=== PATIENT | female | born 1955 | race Asian ===

== ENCOUNTER 2022-03-07 01:48 | Observation (INO) | payer OTHER ==
[~2022-03-07] VITALS: Ht 152.4 cm; Wt 57.6 kg
[2022-03-07] VITALS (7 sets, daily range): BP systolic 119–167
[~2022-03-07 01:48] MED LIST: ASA81 PO; LIP20 PO; LISI40TA13 PO
--- NOTE | 2022-03-07 02:28 | NUR ---
Patient to ER bed AGUIAR to gon for evaluation. Side rails up. Report given to MYRA ZENG(STEPHANIE).
--- NOTE | 2022-03-07 02:55 | NUR ---
BARB Smith at bedside examining patient.
[2022-03-07] MEDS ORDERED: cloNIDine HCL 0.1 MG TABLET PO ONE (03:15)
[2022-03-07 03:50] LABS: BASOPHILS # (AUTO) 0.1 K/uL (0.0-0.2); BASOPHILS % (AUTO) 1.2 % (0.0-2.0); EOSINOPHILS # (AUTO) 0.1 K/uL (0.0-0.4); HEMATOCRIT 42.3 % (36-48); HEMOGLOBIN 14.2 g/dL (12.0-16.0); LYMPHOCYTES # (AUTO) 1.2 K/uL (1.0-5.5); LYMPHOCYTES % (AUTO) 20.2 % (20.5-51.5); MEAN CORPUSCULAR HEMOGLOBIN 28 pg (27-31); MEAN CORPUSCULAR HGB CONC 34 % (32-36); MEAN CORPUSCULAR VOLUME 82 fL (79.0-98.0); MONOCYTES # (AUTO) 0.2 K/uL (0.0-1.0); MONOCYTES % (AUTO) 3.8 % (1.7-9.3); NEUTROPHILS # (AUTO) 4.2 K/uL (1.8-7.7); NEUTROPHILS % (AUTO) 73.8 % (40.0-70.0); PLATELET COUNT (AUTO) 164 K/uL (130-430); RED BLOOD CELL COUNT(AUTO) 5.14 MIL/uL (4.2-6.2); RED CELL DISTRIBUTION WIDTH 14.2 % (9.0-15.0); WHITE BLOOD COUNT (AUTO) 5.8 K/uL (4.8-10.8)
[2022-03-07 04:06] LABS: ANION GAP 8 (5-15); CALCIUM 8.6 mg/dL (8.4-11.0); CHLORIDE 101 mmol/L (98-107); CREATININE 0.85 mg/dL (0.55-1.30); GLUCOSE 120 mg/dL (70-99); POTASSIUM 3.3 mmol/L (3.5-5.1); SODIUM SERUM 137 mmol/L (136-145); UREA NITROGEN, BLOOD 7 mg/dL (8-21)
[2022-03-07 04:15] LABS: ALANINE AMINOTRANSFERASE 27 U/L (12-78); ALBUMIN 3.4 g/dL (3.4-4.8); ASPARTATE AMINOTRANSFERASE 32 U/L (10-37)
[2022-03-07 04:17] LABS: GFR AFRICAN AMERICAN 86 mL/min (>90)
--- NOTE | 2022-03-07 05:32 | NUR ---
Resting comfortably in bed at this time Able to make needs known VSS NAD at this time Pt placed in ED bed 7 Pending admission order
--- NOTE | 2022-03-07 06:31 | NUR ---
Admit bed requested Patient will be admitted to care of . Admitted to TELE unit. Diagnosis CHEST PAIN Inpatient (Yes or No) NO Observation (Yes or No) YES Orientation concerns or request close to nursing station (Yes or No) NO Covid Status PENDING On vent or bipap NO Isolation requirements NO Needs a sitter NO From Home (Yes or if No enter name of facility) YES Requires Dialysis (Yes or No) NO Med Rec Completed (Yes of No) PENDING
[2022-03-07] MEDS ORDERED: LISI40TA13 PO (06:38)
[2022-03-07] MEDS ORDERED: METO25TA6 PO (06:39)
[2022-03-07] MEDS ORDERED: LIP20 PO (06:40)
--- NOTE | 2022-03-07 07:16 | NUR ---
Gave report to Javier
--- NOTE | 2022-03-07 07:25 | NUR ---
RECEIVED PT IN BED #7, IN NAD, VSS, AAOx3, RESTING COMFORTABLE IN BED. AWAITING FURTHER ASSESSEMENT BY ED MD FOR PLAN OF CARE WITH DISPOSITION. PT ADMITTED, AWAITING TRANSFER TO TELE BED.
--- NOTE | 2022-03-07 08:45 | NUR ---
Patient will be admitted to care of Dr. Johansen. Admitted to Telemetry unit. Will go to room 130B. Belongings list completed. Complete and up to date summary report printed. SBAR report to be given at bedside with opportunity for questions.
--- NOTE | 2022-03-07 08:57 | NUR ---
Admission Note Received patient from ER with diagnosis of chest pain. Initial Plan of Care discussed-patient verbalized understanding. Oriented to room, call light, pain management and safety.
--- NOTE | 2022-03-07 11:25 | NUR ---
MD ROUNDS MD Booth gave new orders to recheck Troponin level, Cardio consult, and continue home medications.
--- NOTE | 2022-03-07 11:46 | NUR ---
CONSULTATION PAGED REASON FOR CONSULTATION:CHEST PAIN WAS CONSULT CALLED?Y -PERSON WHO WAS NOTIFIED:LACEY CONSULTING PHYSICIAN:DYLAN HASSAN INFORMATION TECHNOLOGY ASSOCIATE SPECIALTY:CARDIO INFORMATION TECHNOLOGY ASSOCIATE PHONE NUMBER:[phone] REQUESTING PHYSICIAN:BG FLORENCE
[2022-03-07] MEDS ORDERED: lisinopriL 20 MG TABLET PO ONE (12:00)
--- NOTE | 2022-03-07 12:02 | NUR ---
PATIENT ROUNDS Patient laying in bed resting. No chest pain noted, no shortness of breath, no signs of any discomfort. IV site patent, on saline lock. All needs met at this time. Call light within reach. All safety checks in place. Will continue to monitor
--- NOTE | 2022-03-07 16:00 | NUR ---
PATIENT ROUNDS Patient laying in bed resting. Patient denies chest pain, no shortness of breath, no signs of any discomfort. Orthostatic BP done. IV site patent, on saline lock. All needs met at this time. Call light within reach. All safety checks in place. Will continue to monitor
[2022-03-07] MEDS ORDERED: ATORVASTATIN 20 MG TABLET PO SCH (17:00)
--- NOTE | 2022-03-07 18:28 | NUR ---
CLOSING NOTE Patient resting in bed. Patient is A/0 x4. Patient denies chest pain, has no shortness of breath and no signs of distress noted. Patient IV site to LFA is patent on saline lock. Patient to have Troponin level re-drawn at 10pm will endorse to lieutenant shift supervisor nurse. All needs have been met and safety checks in place. Call light within reach. Will endorse to lieutenant shift supervisor nurse.
[2022-03-07] MEDS ORDERED: METOPROLOL TARTRATE 25 MG TABLET PO SCH (21:00)
--- NOTE | 2022-03-08 00:05 | NUR ---
PAGED PAGED DOCTOR HOFFMAN FOR ORDERS
[2022-03-08 00:20] VITALS: BP_SYST 138
--- NOTE | 2022-03-08 01:43 | NUR ---
CALLED AND NOTIFIED TO DR HOFFMAN ABOUT TROPONIN RESULT 57 AT 12: 15 AM. NO NEW ORDER. NEXT TROPONIN SCHEDULED AT 06 AM.
[2022-03-08 04:09] VITALS: BP_SYST 124
--- NOTE | 2022-03-08 06:46 | NUR ---
CLOSING NOTE- PT AWAKE AND ORIENTED. DENIED ANY DISTRESS. NO DIZZINESS OR CHEST PAIN. PENDING 6 AM TROPONIN RESULT. V/S STABLE AFEBRILE. TELE- SR TO SB DOWNED TO 50'S NONSUSTAINED WHILE SLEEP. BRP.
[2022-03-08 07:08] LABS: CALCIUM 8.2 mg/dL (8.4-11.0); CREATININE 0.8 mg/dL (0.55-1.30); POTASSIUM 3.3 mmol/L (3.5-5.1)
[2022-03-08 08:00] VITALS: BP_SYST 151
--- NOTE | 2022-03-08 08:00 | NUR ---
Morning notes: Pt A/Ox4 resting in bed. NO s/s of respiratory or cardiac distress, denies any chest pain. LFA IV site is clean dry and intact, fall and safety precautions are in place, call light is within reach, will continue to monitor.
[2022-03-08] MEDS ORDERED: lisinopriL 20 MG TABLET PO SCH (09:00)
[2022-03-08 12:01] VITALS: BP_SYST 141
[2022-03-08 16:30] VITALS: BP_SYST 134
[2022-03-08] MEDS ORDERED: METO25TA6 PO (17:42)
[2022-03-08 17:45] VITALS: BP_SYST 141
--- NOTE | 2022-03-08 18:30 | NUR ---
D/C Patient Patient given medication reconciliation form and D/C instructions. Exit Care provided. Patient verbalized understanding. MD discussed with patient the results and treatment provided. Ambulatory with steady gait for discharge to home. Patient in stable condition, ID band removed. IV catheter removed, intact and dressing applied, no active bleeding. Rx of Metoprolol given. Patient educated on pain management. All belongings sent with patient.
[2022-03-08] MEDS ORDERED: METOPROLOL TARTRATE 25 MG TABLET PO SCH (21:00)
== END 2022-03-08 18:30 | disposition home or self-care (01) ==
LOC: SED 01:48 → STU 06:30
PROVIDERS: ADMIT Internal Medicine; ATTEND Internal Medicine
DX: R07.89 Other chest pain (principal); Z20.822 Contact with and (suspected) exposure to COVID-19; I16.1 Hypertensive emergency; I21.4 Non-ST elevation (NSTEMI) myocardial infarction; I10 Essential (primary) hypertension; E78.5 Hyperlipidemia, unspecified; R79.89 Other specified abnormal findings of blood chemistry; R42 Dizziness and giddiness; E78.00 Pure hypercholesterolemia, unspecified; Z79.82 Long term (current) use of aspirin; Z79.899 Other long term (current) drug therapy
CPT/HCPCS: 80053; 83880; 85025; 84484 ×2; 36415 ×2; 93005; 71045; 93880; 99291; 87426; 80048; G0378 ×2

== ENCOUNTER 2022-04-06 22:29 | Observation (INO) | payer OTHER ==
[~2022-04-06] VITALS: Ht 152.4 cm; Wt 56.2 kg
[2022-04-06] MEDS: NORMAL SALINE 5 ML DISP.SYRIN IVF SCH (22:00)
[~2022-04-06 22:29] MED LIST changes: -ASA81 PO; +METO25TA6 PO
[2022-04-06 22:45] VITALS: BP_SYST 186
--- NOTE | 2022-04-06 23:03 | NUR ---
BIB AMB WITH CHARGE NURSE. C/O SUBSTERNAL CHEST PAIN, NON RAIDIATING STARTED AT 1600 TODAY. SON AT BEDSIDE. XRAY DONE. EVAL/ EXAM DR. MCKAY.
[2022-04-06 23:09] LABS: BASOPHILS # (AUTO) 0.1 K/uL (0.0-0.2); EOSINOPHILS # (AUTO) 0.2 K/uL (0.0-0.4); EOSINOPHILS % (AUTO) 2.4 % (0.0-4.0); HEMATOCRIT 43.6 % (36-48); HEMOGLOBIN 14.7 g/dL (12.0-16.0); LYMPHOCYTES # (AUTO) 2.1 K/uL (1.0-5.5); LYMPHOCYTES % (AUTO) 29.2 % (20.5-51.5); MEAN CORPUSCULAR HEMOGLOBIN 28 pg (27-31); MEAN CORPUSCULAR HGB CONC 34 % (32-36); MEAN CORPUSCULAR VOLUME 82 fL (79.0-98.0); MONOCYTES # (AUTO) 0.4 K/uL (0.0-1.0); MONOCYTES % (AUTO) 5.4 % (1.7-9.3); NEUTROPHILS # (AUTO) 4.4 K/uL (1.8-7.7); PLATELET COUNT (AUTO) 167 K/uL (130-430); RED CELL DISTRIBUTION WIDTH 14.6 % (9.0-15.0); WHITE BLOOD COUNT (AUTO) 7.2 K/uL (4.8-10.8)
[2022-04-07 00:17] LABS: ALANINE AMINOTRANSFERASE 23 U/L (12-78); ALBUMIN 3.6 g/dL (3.4-4.8); ASPARTATE AMINOTRANSFERASE 31 U/L (10-37); CALCIUM 8.8 mg/dL (8.4-11.0); CREATININE 0.82 mg/dL (0.55-1.30); GLUCOSE 111 mg/dL (70-99); TOTAL BILIRUBIN 0.9 mg/dL (0.0-1.0); UREA NITROGEN, BLOOD 10 mg/dL (8-21)
[2022-04-07 00:18] LABS: GFR AFRICAN AMERICAN 89 mL/min (>90)
--- NOTE | 2022-04-07 01:10 | NUR ---
UA COLLECTED AND COVID NASAL SWAB COLLECTED AND SENT TO LAB
[2022-04-07] MEDS ORDERED: ASPI-1155 PO (01:16)
[2022-04-07] MEDS ORDERED: ASPIRIN 325 MG TABLET PO ONE (01:30)
--- NOTE | 2022-04-07 01:37 | NUR ---
Admit bed requested Patient will be admitted to care of Admitted to Telemetry unit. Diagnosis Chest Pain, Nstemi Inpatient (Yes or No) yes Observation (Yes or No) no Orientation concerns or request close to nursing station (Yes or No) no Covid Status pending On vent or bipap no Isolation requirements no Needs a sitter no From Home (Yes or if No enter name of facility) yes Requires Dialysis (Yes or No) no Med Rec Completed (Yes of No) yes
--- NOTE | 2022-04-07 02:46 | NUR ---
ADMIT NOTE Received pt from ER with a diagnosis of Chest Pain. Admission process initiated. patient oriented to pain management, safety and call light-teach back done.
[2022-04-07 02:50] LABS: BILIRUBIN,URINE NEGATIVE (NEGATIVE); BLOOD, URINE TRACE (NEGATIVE); CLARITY/URINE CLEAR (CLEAR); COLOR,URINE YELLOW (YELLOW); GLUCOSE,URINE NEGATIVE (NEGATIVE); KETONES,URINE NEGATIVE (NEGATIVE); LEUKOCYTE ESTERASE ,URINE NEGATIVE (NEGATIVE); NITRITE, URINE NEGATIVE (NEGATIVE); PH,URINE 7.5 (5.0-8.0); PROTEIN URINE NEGATIVE (NEGATIVE); UROBILINOGEN,URINE 0.2 (0.2-1.0)
[2022-04-07 02:58] VITALS: BP_SYST 157
--- NOTE | 2022-04-07 03:00 | NUR ---
PT STABLE FOR ADMIT TO ROOM #105B. TO ROOM [facility] WITH RN ON MONITOR. REPORT TO AZUCENA EATON. ALL PAPERWORK TO [facility]
[2022-04-07 03:43] LABS: ANION GAP 10 (5-15); CHLORIDE 104 mmol/L (98-107); POTASSIUM 3.3 mmol/L (3.5-5.1)
[2022-04-07] MEDS ORDERED: ACETAMINOPHEN 325 MG TABLET PO PRN ×2 (03:45→09:00)
[2022-04-07] MEDS ORDERED: HYDROcodone/ACETAMIN 10-325 MG TAB PO PRN ×2 (03:45→09:00)
[2022-04-07] MEDS ORDERED: HYDROcodone/ACETAMIN 5-325 MG TAB (NORCO/ VICODIN) PO PRN ×2 (03:45→09:00)
--- NOTE | 2022-04-07 03:46 | NUR ---
Dr. Pearce / Pain med Called and s/w Dr. Pearce. Informed patient is c/o chest pain and does not have pain meds. Received pain medication orders; TEDDY
[2022-04-07 04:15] VITALS: BP_SYST 141
[2022-04-07] MEDS: NITROGLYCERIN 0.4 MG TAB.SUBL SL PRN ×2 (04:15→06:58)
--- NOTE | 2022-04-07 04:16 | NUR ---
Nitro, MRSA swab Nitro SL given for chest pain (12/08) as ordered. MRSA swab of nares done and will submit to lab, patient was hospitalized less then 30 days ago. Addendum: 04/07/22 at 0436 by Camila Chapman RN Five min after first dose patient did not want second tab, she said "let it work, wait and see". Pain is decreased, she does not need/want second tab.
--- NOTE | 2022-04-07 04:33 | NUR ---
CONSULT: CONSULT CALLED FOR DR. BURGOS I SPOKE TO MARCELO BERRIOS REASON FOR CONSULT: CHEST PAIN REQUESTING CONSULT: DR. SHRADDHA Brenner [facility] PHONE NUMBER: [phone]
--- NOTE | 2022-04-07 07:00 | NUR ---
c/o chest pain, Nitro Patient resting w/eyes closed. Momentarily awakened and asked how she is. Reports mild chest pain, less than when arrived and reports Nitro helped. one Nitro sublingual given. wctm
--- NOTE | 2022-04-07 07:15 | NUR ---
closing note Patient resting in comfortable position, presently chest pain almost gone. She states does not need another pain med now. Will endorse care.
[2022-04-07 08:00] VITALS: BP_SYST 116
--- NOTE | 2022-04-07 08:00 | NUR ---
OPENING NOTES: RECEIVED PATIENT FROM COMPLIANCE INTERN RN. PATIENT EATING BREAKFAST. BREATHING EVEN AND NON LABORED RA. PATIENT AO X4. FALL, SAFETY AND ASPIRATION MEASURES REINFORCED. CALL LIGHT WITHIN REACH.
[2022-04-07] MEDS ORDERED: ONDANSETRON HCL 4 MG/2 ML VIAL IVP PRN (09:00)
[2022-04-07] MEDS ORDERED: NALOXONE HCL 0.4 MG/ML AMP (NARCAN) IVP PRN ×2 (09:00)
[2022-04-07] MEDS ORDERED: amLODIPine BESYLATE 5 MG TABLET PO ONE (09:15)
[2022-04-07] MEDS: lisinopriL 20 MG TABLET PO SCH (09:40)
[2022-04-07] MEDS: ASPIRIN 81 MG TAB.CHEW PO SCH (09:41)
[2022-04-07] MEDS: METOPROLOL TARTRATE 25 MG TABLET PO SCH ×2 (09:41→21:12)
[2022-04-07 12:00] VITALS: BP_SYST 122
--- NOTE | 2022-04-07 12:00 | NUR ---
RN NOTES: PATIENT RESTING IN BED. NO S/S OF ACUTE DISTRESS NOTED. DENIES ANY DISCOMFORT AT TIS TIME. CALL LIGHT WITHIN REACH.
[2022-04-07] MEDS: NORMAL SALINE 5 ML DISP.SYRIN IVF SCH (14:55)
[2022-04-07 16:00] VITALS: BP_SYST 118
[2022-04-07] MEDS: ATORVASTATIN 20 MG TABLET PO SCH (17:30)
--- NOTE | 2022-04-07 19:30 | NUR ---
PM OPENING NOTES HAND-OFF REPORT RECEIVED FROM A.M NURSE FOR CONTINUITY OF CARE. REPORTED POSSIBLE D/C TOMORROW 04/08/22 IF NO CHEST PAIN AND TROPONIN CONTINUE TO TREND DOWN. PT RECEIVED A/OX4. STATED HEADACHE FRONTAL AREA. PT TEACHING CONCERNING NOTIFICATION TO STAFF IMMEDIATELY OF ANY CP. CONT. TO MONITOR LABS.
--- NOTE | 2022-04-07 19:32 | NUR ---
Closing notes: Patient resting in bed. No s/s of acute distress noted. Fall and safety measures provided. Call light within reach. Needs met throughout shift. Endorsed to shift production supervisor RN.
[2022-04-07 20:00] VITALS: BP_SYST 144
[2022-04-07 22:52] LABS: THYROID STIMULATING HORMONE 1.43 uIu/mL (0.36-3.74)
--- NOTE | 2022-04-07 23:00 | NUR ---
DAUGHTER ON PHONE VERBALIZED CONCERNS OF PT BEING PRIMARY CARE GIVEN OF . DESIRES TO SPEAK WITH CASE-MANAGEMENT CONCERNING "SO HELP" FOR MY MOM UPON DISCHARGE. INSRUCTED HER TO PHONE IN AM AND SPEAK WITH CASE MANAGEMENT AND THAT I WOULD INFORM A.M. NURSE CONCERNING THE MATTER.
[2022-04-08] VITALS: BP_SYST 120
--- NOTE | 2022-04-08 | NUR ---
NOTED PT RESTING WELL. TYLENOL EFFECTIVE IN RELIEVING H/A.
[2022-04-08] MEDS: NORMAL SALINE 5 ML DISP.SYRIN IVF SCH ×2 (05:45→14:00)
[2022-04-08 06:52] LABS: EOSINOPHILS # (AUTO) 0.2 K/uL (0.0-0.4); EOSINOPHILS % (AUTO) 3.6 % (0.0-4.0); HEMATOCRIT 39.4 % (36-48); HEMOGLOBIN 13.4 g/dL (12.0-16.0); LYMPHOCYTES # (AUTO) 1.7 K/uL (1.0-5.5); LYMPHOCYTES % (AUTO) 34.1 % (20.5-51.5); MEAN CORPUSCULAR HEMOGLOBIN 28 pg (27-31); MEAN CORPUSCULAR HGB CONC 34 % (32-36); MEAN CORPUSCULAR VOLUME 82 fL (79.0-98.0); MONOCYTES # (AUTO) 0.4 K/uL (0.0-1.0); MONOCYTES % (AUTO) 7.4 % (1.7-9.3); NEUTROPHILS # (AUTO) 2.7 K/uL (1.8-7.7); NEUTROPHILS % (AUTO) 53.9 % (40.0-70.0); PLATELET COUNT (AUTO) 146 K/uL (130-430); RED BLOOD CELL COUNT(AUTO) 4.78 MIL/uL (4.2-6.2)
[2022-04-08 06:58] LABS: CALCIUM 8.3 mg/dL (8.4-11.0); CREATININE 0.81 mg/dL (0.55-1.30); POTASSIUM 3.3 mmol/L (3.5-5.1)
[2022-04-08 07:00] VITALS: BP_SYST 151
--- NOTE | 2022-04-08 07:30 | NUR ---
PM CLOSING NOTES. PT STATED NO LONGER A PROBLEM FOR GETTING "SOME HELP" FOR HER UPON DISCHARGE. "WE WILL USE SOME FAMILY RELATIVES TO HELP US AT HOME" PT SMILING STATED "GOOD REST, NO PAIN". HAND-OFF REPORT TO A.M. NURSE. RELINQUISHED CARE OF PT AT THIS TIME.
[2022-04-08 08:00] VITALS: BP_SYST 151
[2022-04-08] MEDS: ASPIRIN 81 MG TAB.CHEW PO SCH (08:19)
[2022-04-08] MEDS: lisinopriL 20 MG TABLET PO SCH (08:20)
[2022-04-08] MEDS: METOPROLOL TARTRATE 25 MG TABLET PO SCH (08:20)
[2022-04-08] MEDS ORDERED: amLODIPine BESYLATE 5 MG TABLET PO SCH (09:00)
[2022-04-08] MEDS ORDERED: AMLO5TAB4 PO (09:28)
[2022-04-08 12:00] VITALS: BP_SYST 140
[2022-04-08 16:00] VITALS: BP_SYST 154
[2022-04-08 17:22] VITALS: BP_SYST 154
[2022-04-08] MEDS: ATORVASTATIN 20 MG TABLET PO SCH (17:55)
== END 2022-04-08 18:43 | disposition home health service (06) ==
LOC: SED 22:29 → STU 04-07 01:28 → INTOOBSV 04-07 01:28 → STU 04-07 01:56
PROVIDERS: ADMIT Preventive Medicine Preventive Medicine/Occupational Environmental Medicine; ATTEND Preventive Medicine Preventive Medicine/Occupational Environmental Medicine
DX: R07.89 Other chest pain (principal); Z20.822 Contact with and (suspected) exposure to COVID-19; I10 Essential (primary) hypertension; E78.5 Hyperlipidemia, unspecified; I21.4 Non-ST elevation (NSTEMI) myocardial infarction; E87.6 Hypokalemia; F41.9 Anxiety disorder, unspecified; R73.9 Hyperglycemia, unspecified; Z79.82 Long term (current) use of aspirin; Z79.899 Other long term (current) drug therapy
CPT/HCPCS: 99285; 71045; 80053; 83880; 85025 ×2; 84484 ×2; 36415 ×2; 93005 ×2; 87426; 80061; 84443; 87081; 81003; 80048; G0378